=== PATIENT | female | born 1960 | race African-American/Black ===

== ENCOUNTER 2020-06-25 11:32 | Emergency (ER) | payer OTHER ==
[~2020-06-25] VITALS: Ht 167.6 cm; Wt 137.0 kg
[2020-06-25 12:02] LABS: HEMATOCRIT. 33.1 % (36.0-48.0); MEAN CORPUSCULAR VOLUME 81.7 fL (81.0-99.0); MEAN PLATELET VOLUME 8.4 fl (7.4-10.4); PLATELET 626 x1000/uL (130-400); RED BLOOD CELL COUNT 4.06 mill/uL (4.2-5.4); RED CELL DISTRIBUTION WIDTH 16.4 % (11.6-14.6)
[2020-06-25 12:10] LABS: CHLORIDE 109 mEq/L (98-107)
[2020-06-25 12:11] LABS: PROTHROMBIN TIME 10.9 sec (9.6-11.0)
[2020-06-25] MEDS ORDERED: SODIUM CHLORIDE 0.9% 1,000 ML IV ONE (12:30)
[2020-06-25] MEDS ORDERED: VANCOMYCIN 1 G PREMIX 200 ML IV ONE (12:30)
[2020-06-25] MEDS ORDERED: PIPERACILLIN/TAZ 3.375G PREMIX 50 ML IV ONE (12:30)
[2020-06-25 12:37] LABS: NUCLEATED RED BLOOD CELLS 4 /100 WBC; PLATELET ESTIMATE INCREASED
[2020-06-25] MEDS ORDERED: LORAZEPAM 2MG/ML CPJ IV ONE (13:45)
[2020-06-25] MEDS ORDERED: LEVETIRACETAM 1000MG PREMIX 100 ML IV ONE (14:15)
[2020-06-25 15:17] LABS: CLARITY URINE CLEAR (CLEAR); COLOR URINE YELLOW (YELLOW); KETONES URINE NEGATIVE (NEGATIVE); LEUKOCYTE ESTERASE URINE NEGATIVE (NEGATIVE); NITRITE URINE NEGATIVE (NEGATIVE); OCCULT BLOOD URINE NEGATIVE (NEGATIVE); PH URINE 6.5 (4.5-8.0); PROTEIN URINE NEGATIVE (NEGATIVE); UROBILINOGEN URINE 0.2 E.U./dL (0.2-1.0)
[2020-06-25 19:06] VITALS: BP 143/80
== END 2020-06-25 19:23 | disposition short-term general hospital (02) ==
LOC: ER 11:32 → CANBEDREQ 19:09 → ER 19:23
DX: R56.9 Unspecified convulsions (principal); E11.9 Type 2 diabetes mellitus without complications
CPT/HCPCS: 36415; 70450; 71045; 74176; 80053; 81003; 82962; 83605; 84145; 84484; 85025; 85610; 87040; 87086; 93005; 96365; 96366; 96368; 99285; J1953; J2543; J3370; J7030